=== PATIENT | female | born 1940 | race Caucasian/White ===

== ENCOUNTER → 2018-07-26 | Outpatient (CLI) | payer MEDICARE ==
[~2018-07-26] MED LIST: HUMALOG100 UNIT/1 SQ; LANTUS100 UNITS/ SQ; RAMIPRIL5 MG PO
--- NOTE | 2018-07-26 15:15 | Diagnostic Imaging Report ---
CT CHEST WITHOUT CONTRAST HISTORY: LEFT SIDED CHEST PAIN COMPARISON: Chest radiographs August 17, 2015 TECHNIQUE: CT scan of the chest WITHOUT intravenous contrast, using standard protocol. The chest was scanned utilizing a multidetector helical scanner from the apex to the level of the adrenal glands. Coronal and sagittal reformats are provided. IV CONTRAST: None, which limits evaluation of the vascular structures, mediastinum and soft tissues. RADIATION DOSE: Total DLP: 490.93 mGy*cm Dose modulation, iterative reconstruction, and/or weight based adjustment of the mA/kV was utilized to reduce the radiation dose to as low as reasonably achievable. COMPLICATIONS: None FINDINGS: Lines/tubes: None. Lungs and Airways: Mild biapical pleural-parenchymal scarring. An 8 mm right anterior upper lobe subpleural nodule (series 3 image 37), portions of the nodule appeared low density, but not definitively macroscopic fat. A 1.4 cm right posterior pleural-based focus of macroscopic adipose tissue (series 3 image 66). A 1.5 cm left dorsally calcified nodule (series 3 image 33). Pleura: No effusion or pneumothorax. Heart and mediastinum: The thyroid gland is normal. Trace pericardial fluid. Abdomen: Limited nonenhanced views of the upper abdomen. Lymph nodes: No pathologically enlarged lymph node. Vessels: Scattered atherosclerotic vascular calcifications, including the coronary arteries. Bones: Diffusely decreased mineralization of the osseous structures limits bone detail. Multilevel mild to moderate degenerative changes and Schmorl's nodes. Soft tissues: Otherwise, unremarkable. IMPRESSION: 1. An indeterminant 8 mm right upper lobe subpleural pulmonary nodule, recommend a follow-up CT of the chest without contrast in 6 months. 2. Coronary atherosclerosis. 3. Diffuse osseous demineralization, recommend correlation with bone densitometry. 4. No acute displaced rib fracture. Signed by: Dr. Bennie Mcclelland D.O., M.M.M. on 07/26/2018 3:11 PM
== END ==
LOC: CT 12:54
PROVIDERS: ATTEND Internal Medicine Interventional Cardiology
DX: R07.9 Chest pain, unspecified (principal)
CPT/HCPCS: 71250

== ENCOUNTER 2021-11-01 16:02 | Emergency (ER) | payer MEDICARE ==
[~2021-11-01] VITALS: Ht 167.6 cm; Wt 82.6 kg
[2021-11-01] MEDS ORDERED: FENTANYL CITRATE/PF 100MCG/2 ML INJ IV ONE (16:45)
[2021-11-01] MEDS ORDERED: ONDANSETRON HCL INJ 2MG/ML 2ML 2 MG/ML VIAL IV PRN (16:45)
[2021-11-01 17:23] LABS: BASOPHILS # (AUTO) 0.1 (0.0-0.1); BASOPHILS % 0.5 % (0.0-1.0); EOSINOPHILS # (AUTO) 0.1 (0.0-0.4); EOSINOPHILS % 0.9 % (0.0-6.0); HEMATOCRIT 44.2 % (34.2-44.1); HEMOGLOBIN 14.3 g/dL (12.0-16.0); LYMPHOCYTES # (AUTO) 1.2 (1.0-3.2); LYMPHOCYTES % 12.2 % (18.0-39.1); MEAN CORPUSCULAR HEMOGLOBIN 29.9 pg (28-32); MEAN CORPUSCULAR HGB CONC 32.4 g/dL (31-35); MEAN CORPUSCULAR VOLUME 92.3 fL (81-99); MONOCYTES # (AUTO) 0.8 (0.2-0.8); MONOCYTES % 7.4 % (4.4-11.3); NEUTROPHILS % 78.7 % (38.7-80.0); PLATELET COUNT 198 x10e3/uL (140-360); RED BLOOD COUNT 4.79 x10e6/uL (3.6-5.1); RED CELL DISTRIBUTION WIDTH 13.2 % (11.7-14.4)
[2021-11-01 17:42] LABS: ALBUMIN 3.7 g/dL (3.5-5.0); ALBUMIN/GLOBULIN RATIO 1.1 (0.8-2.0); ANION GAP 14.9 mmol/L (8-16); CALCIUM 9.1 mg/dL (8.4-10.2); CREATININE, SERUM 0.84 mg/dL (0.57-1.11); POTASSIUM 3.9 mmol/L (3.5-5.1)
[2021-11-01] MEDS ORDERED: ULTRAM 50MG50 MG PO (20:31)
[2021-11-01] MEDS ORDERED: ACETAMINOPHEN 325 MG TAB PO ONE (20:45)
[2021-11-01 21:08] VITALS: BP 151/67
== END 2021-11-01 21:07 | disposition home or self-care (01) ==
LOC: ER 16:08
DX: M25.551 Pain in right hip (principal); M79.631 Pain in right forearm; W18.30XA Fall on same level, unspecified, initial encounter; Y92.098 Other place in other non-institutional residence as the place of occurrence of the external cause; E11.40 Type 2 diabetes mellitus with diabetic neuropathy, unspecified
CPT/HCPCS: 36415; 70450; 80053; 84484; 85025; 93005; 99284